=== PATIENT | male | born 1990 | race Caucasian/White ===

== ENCOUNTER 2018-12-24 21:37 | Emergency (ER) | payer SELFPAY ==
[2018-12-24 21:45] VITALS: BP 133/82; PULSE 96; RESP 16; TEMP 97.7; O2SAT 99
--- NOTE | 2018-12-24 22:09 | ED PDOC ---
HPI: Dental Pain/Injury Time Seen by Provider: 12/24/18 22:01 Chief Complaint (Nursing): Dental Pain Chief Complaint (Provider): toothache History Per: Patient History/Exam Limitations: no limitations Onset/Duration Of Symptoms: Days (3) Current Symptoms Are (Timing): Still Present Severity: Severe Quality: "Pain" Additional Complaint(s): pt reports his LEFT lower posterior molar broke this morning and he has had severe pain since then. he has had problem with tooth in the past and is waiting for kelechi to make appointment with his dentist. he has used tylenol, motrin and viscous lidocaine washes with no relieve no fever or swelling PMD none Past Medical History Reviewed: Historical Data, Nursing Documentation, Vital Signs Vital Signs: Last Vital Signs Temp 97.7 F 12/24/18 21:44 Pulse 96 H 12/24/18 21:44 Resp 16 12/24/18 21:44 BP 133/82 12/24/18 21:44 Pulse Ox 99 12/24/18 21:44 Primary Care Provider: FAMILY PROVIDER,NO - Medical History PMH: No Chronic Diseases - Family History Family History: States: Unknown Family Hx - Social History Current smoker - smoking cessation education provided: No Drugs: Denies - Home Medications Home Medications: Ambulatory Orders Medication Instructions Recorded Acetaminophen [Tylenol Extra 1,000 mg PO Q6 PRN #100 tablet 12/24/18 Strength] Amoxicillin/Clavulanate [Augmentin 1 tab PO BID #14 tab 12/24/18 875 MG-125 MG] Ibuprofen [Motrin Tab] 600 mg PO Q8 PRN #60 tab 12/24/18 traMADol [Ultram] 50 mg PO TID PRN #15 tab 12/24/18 - Allergies Allergies/Adverse Reactions: Allergies Allergy/AdvReac Type Severity Reaction Status Date / Time No Known Allergies Allergy Verified 12/24/18 21:46 Review of Systems ROS Statement: Except As Marked, All Systems Reviewed And Found Negative (and as per HPI) Constitutional: Negative for: Fever, Chills ENT: Positive for: Mouth Pain Physical Exam - Reviewed Nursing Documentation Reviewed: Yes Vital Signs Reviewed: Yes - Physical Exam Appears: Positive for: Non-toxic, In Acute Distress Head Exam: Positive for: ATRAUMATIC, NORMOCEPHALIC Skin: Positive for: Warm, Dry ENT: Positive for: Other (LEFT lower last molar: partial fracture with brown stain on surface. Other LEFT lower molars demonstrate large amount of brown staining along gingival pockets. No active bleeding. No exposed dentin. No palpable abscess.) - ECG O2 Sat by Pulse Oximetry: 99 Pulse Ox Interpretation: Normal - Progress ED Course And Treament: Pt has reported acute fracture of tooth but exam demonstrates broken tooth of much older age. Ordered tramadol and ordered for pain control. Pt stable for discharge with antibiotics and NSAIDs and short term opiates. (Looked patient up on [place] RX database and no records found.) According to RN, pt declined these medications and reported to her that "if that's all you're going to do for him, he'll just leave." Prior to further discussion, pt left the ER. Disposition - Clinical Impression Clinical Impression: Toothache Counseled Patient/Family Regarding: Diagnosis, Need For Followup, Rx Given (reviewed use of narcotic medications and risk of dependence, addiction, and overdose. advised to use as little as possible and nonnarcotic meds also advised.) - Disposition Disposition: Routine/Home Disposition Time: 22:08 Condition: STABLE Additional Instructions: FOLLOWUP WITH DENTIST SOON POSSIBLE Prescriptions: Acetaminophen [Tylenol Extra Strength] 1,000 mg PO Q6 PRN #100 tablet PRN Reason: FEVER OR PAIN Amoxicillin/Clavulanate [Augmentin 875 MG-125 MG] 1 tab PO BID #14 tab Ibuprofen [Motrin Tab] 600 mg PO Q8 PRN #60 tab PRN Reason: Pain, Moderate (4-7) traMADol [Ultram] 50 mg PO TID PRN #15 tab PRN Reason: severe pain only Instructions: Opioids for Short-Term Treatment of Pain, Dental Pain (DC), Taking Narcotics Safely
== END 2018-12-24 22:25 | disposition home or self-care (01) ==
LOC: H.ER 21:37
DX: K08.89 Other specified disorders of teeth and supporting structures (principal)